=== PATIENT | male | born 1980 | race Caucasian/White ===

== ENCOUNTER 2021-04-17 14:13 | Observation (INO) | payer SELFPAY ==
[~2021-04-17] VITALS: Ht 177.8 cm; Wt 96.1 kg
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
[2021-04-17 14:42] LABS: MEAN CORPUSCULAR HEMOGLOBIN 32.1 pg (27.5-34.5); MEAN CORPUSCULAR HGB CONC 32.7 g/dL (33.2-36.2); MEAN PLATELET VOLUME 7.4 fL (7.4-10.4); PLATELET COUNT 293 x10^3/uL (130-400); RED BLOOD COUNT 5.13 x10^6/uL (4.38-5.82); RED CELL DISTRIBUTION WIDTH 15.2 % (9.4-14.8)
[2021-04-17 14:51] LABS: ALBUMIN 3.8 g/dL (3.4-5.0); ANION GAP 10 mmol/L (5-15); CALCIUM 8.8 mg/dL (8.5-10.1); CHLORIDE 103 mmol/L (98-107); CREATININE 1.94 mg/dL (0.7-1.3)
--- NOTE | 2021-04-17 15:05 | NUR ---
PT resting in bed, warming blanket in place.
[2021-04-17 15:43] LABS: <PLATELET ESTIMATE> ADEQUATE; <PLT MORPHOLOGY> NORMAL PLT MORPH; <RBC MORPHOLOGY> NORMAL; BAND#(MANUAL) 1.29 x10^3/uL; BANDS%(MANUAL) 7 % (0-7); EOS#(MANUAL) 0.18 x10^3/uL (0.0-0.4); EOS% (MANUAL) 1 % (1-7); LYMPH#(MANUAL) 0.55 x10^3/uL (1-3.4); LYMPHS% (MANUAL) 3 % (22-44); MONOS#(MANUAL) 1.47 x10^3/uL (0.3-2.7); MONOS% (MANUAL) 8 % (2-9); SEGS% (MANUAL) 81 % (42-75)
[2021-04-17] MEDS ORDERED: CEFTRIAXONE 1,000 MG in DEXTROSE 5% 50 ML IVPB ONE (16:00)
[2021-04-17] MEDS ORDERED: AZITHROMYCIN 500 MG in SODIUM CHLORIDE 0.9% 250 ML IV ONE (16:00)
--- NOTE | 2021-04-17 16:16 | NUR ---
I AM ASSUMING CARE OF THIS PT FROM HILARIO (PALLAVI) AT THIS TIME. SBAR WAS EXCHANGED AT THE BEDSIDE.
--- NOTE | 2021-04-17 16:16 | NUR ---
BILATERAL EAR IRRIGATION FOR WAX OCCLUSIONS AND DIFFICULTY HEARING SECONDARY TO SUCH.
[2021-04-17] MEDS ORDERED: SODIUM CHLORIDE 0.9% 1,000ML IVBOLUS ONE (16:30)
--- NOTE | 2021-04-17 16:55 | NUR ---
HOSPITALIST IS AT THE BEDSIDE FOR CONSULT/ASSESSMENT
[2021-04-17 16:57] LABS: ALANINE AMINOTRANSFERASE 330 U/L (12-78); ALBUMIN 3.7 g/dL (3.4-5.0); C-REACTIVE PROTEIN, QUANT 0.86 mg/dL (0.02-0.49)
[2021-04-17] MEDS ORDERED: ONDANSETRON 2MG/ML, 2ML IVPush PRN (17:00)
[2021-04-17] MEDS ORDERED: LORazepam 0.5MG TABLET PO PRN (17:00)
[2021-04-17] MEDS ORDERED: LORazepam 1MG TABLET PO PRN ×2 (17:00)
[2021-04-17] MEDS ORDERED: hydrALAzine 20 MG/ML, 1ML IVPush PRN (17:00)
[2021-04-17] MEDS ORDERED: DOCUSATE 100 MG CAPSULE PO PRN (17:00)
[2021-04-17] MEDS ORDERED: ACETAMINOPHEN 325 MG TABLET PO PRN (17:00)
[2021-04-17] MEDS ORDERED: LORazepam 2 MG/ML, 1ML IV PRN ×3 (17:00)
[2021-04-17 17:06] LABS: ALKALINE PHOSPHATASE 103 U/L (45-117); BILIRUBIN,TOTAL 0.2 mg/dL (0.2-1.0); TOTAL PROTEIN 8.2 g/dL (6.4-8.2)
--- NOTE | 2021-04-17 17:06 | NUR ---
PT SLEEPING INTERMITTENTLY. FREQUENT PERIODS OF APNEA ACCOMPANIED BY SUPPLEMENTAL O2 VIA NC. VS ARE CURRENTLY STABLE, AND WDL ASIDE FROM SUPPLEMENTAL O2. PT IS NOT INTERESTED IN DISCUSSING THE EVENTS OF THIS AFTERNOON WITH PROVIDERS. WE ARE AWAITING A ROM ASSIGNMENT FOR ADMISSION. IN THE MEANYTIME, I WILL CONTINUE TO MONITOR AND TREAT ORDERED, WELL PRN WHILE AWAITING A ROOM ASSIGNMENT.
[2021-04-17 17:10] LABS: BILIRUBIN, DIRECT < 0.1 mg/dL (0.1-0.2); BILIRUBIN,INDIRECT 0.1 mg/dL (0.0-2.0)
[2021-04-17] MEDS ORDERED: HEPARIN 5,000 UNITS/ML, 1ML ONE (17:17)
[2021-04-17] MEDS: HEPARIN 5,000 UNITS/ML, 1ML SQ SCH (17:26)
[2021-04-17] MEDS ORDERED: NALOXONE 0.4 MG/ML, 1ML IVPush PRN (17:30)
[2021-04-17] MEDS ORDERED: THIAMINE 200 MG in SODIUM CHLORIDE 0.9% 50 ML IV ONE (17:30)
[2021-04-17] MEDS: AMPICILLIN/SULBACTAM 3 GM in SODIUM CHLORIDE 0.9% 100 ML IV SCH (17:56)
[2021-04-17 18:01] LABS: D-DIMER 2.26 ug/mlFEU (0.00-0.52); INTERNATIONAL NORMALIZED RATIO 1.02 (0.93-1.1); PROTHROMBIN TIME 10.9 Seconds (9.6-11.5)
--- NOTE | 2021-04-17 18:13 | NUR ---
PT ASKING PERMISSION TO LEAVE. HE IS STILL INTERMITTENTLY SLEEPING W LESS FREQUENT PERIODS OF APNEA. VS ARE STABLE, AND WDL ASIDE FROM SUPPLEMENTAL O2 FOR RESP DEPRESSION.
[2021-04-17] MEDS: LACTATED RINGERS 1,000 ML IV SCH (18:26)
--- NOTE | 2021-04-17 18:46 | NUR ---
PT MOVED TO ROOM 16 WHILE AWAITING A ROOM ASSIGNMENT FOR ADMISSION.
--- NOTE | 2021-04-17 18:54 | NUR ---
RECEIVED REPORT FROM PALLAVI MACKEY. PT RESTING ON [facility]. NADN. RAMIREZ.
--- NOTE | 2021-04-17 19:08 | NUR ---
PT AWAKE AND ALERT. PROVIDED W/ MEAL TRAY.
--- NOTE | 2021-04-17 19:36 | NUR ---
PT RESTING ON GURNEY. NADN. RAMIREZ.
--- NOTE | 2021-04-17 20:38 | NUR ---
PT RESTING ON GURNEY. NADN. RR REMAINS 8-12. TO BE MEDICATED PER NOV.
[2021-04-17] MEDS ORDERED: NALOXONE 0.4 MG/ML, 1ML ONE (20:40)
--- NOTE | 2021-04-17 20:47 | NUR ---
PT MEDICATED PER NOV. RR INCREASED TO 12-14. PT AWAKE AND CONVERSING BUT STATES "I'M JUST REALLY TIRED". PT TRANSFERRED TO FLOOR W/ JOE, AGENCY SERVICE REPRESENTATIVE.
[2021-04-17 21:00] VITALS: BP 105/76
[2021-04-17] MEDS: SODIUM CHLORIDE FLUSH 10ML SYR IVF SCH (21:44)
[2021-04-18] MEDS: AMPICILLIN/SULBACTAM 3 GM in SODIUM CHLORIDE 0.9% 100 ML IV SCH ×2 (01:23→10:20)
[2021-04-18] MEDS: HEPARIN 5,000 UNITS/ML, 1ML SQ SCH ×2 (01:24→09:32)
[2021-04-18 01:28] VITALS: BP 109/77
[2021-04-18 02:05] LABS: MICROSCOPIC INDICATED
[2021-04-18 02:08] LABS: AMPHETAMINE SCREEN, URINE Positive (Negative); BARBITURATE SCREEN, URINE Negative (Negative); BENZODIAZEPINE SCREEN, URINE Negative (Negative); CANNABINOID SCREEN, URINE Negative (Negative); COCAINE SCREEN, URINE Negative (Negative); METHADONE SCREEN, URINE Negative (Negative); OPIATE SCREEN, URINE Positive (Negative)
[2021-04-18] MEDS: LACTATED RINGERS 1,000 ML IV SCH (05:37)
[2021-04-18 06:44] VITALS: BP 120/82
[2021-04-18] MEDS: SODIUM CHLORIDE FLUSH 10ML SYR IVF SCH (09:00)
[2021-04-18 09:47] LABS: BASOPHILS % (AUTO) 1 % (0-1); EOSINOPHILS % (AUTO) 1 % (1-7); LYMPHOCYTES % (AUTO) 23 % (22-44); MEAN CORPUSCULAR HEMOGLOBIN 32.1 pg (27.5-34.5); MEAN CORPUSCULAR HGB CONC 33.5 g/dL (33.2-36.2); MEAN PLATELET VOLUME 7.7 fL (7.4-10.4); MONOCYTES % (AUTO) 7 % (2-9); NEUTROPHILS % (AUTO) 68 % (42-75); PLATELET COUNT 268 x10^3/uL (130-400); RED BLOOD COUNT 4.42 x10^6/uL (4.38-5.82); RED CELL DISTRIBUTION WIDTH 14.8 % (9.4-14.8)
[2021-04-18 09:52] LABS: ANION GAP 2 mmol/L (5-15); CALCIUM 8.5 mg/dL (8.5-10.1); CHLORIDE 105 mmol/L (98-107); CREATININE 0.93 mg/dL (0.7-1.3)
[2021-04-18] MEDS ORDERED: AMOX1TAB64 PO (10:38)
[2021-04-18 11:30] LABS: ALANINE AMINOTRANSFERASE 253 U/L (12-78); ALBUMIN 3.3 g/dL (3.4-5.0)
[2021-04-18 11:32] LABS: ALKALINE PHOSPHATASE 85 U/L (45-117); BILIRUBIN,TOTAL 0.2 mg/dL (0.2-1.0); TOTAL PROTEIN 7.1 g/dL (6.4-8.2)
[2021-04-18 11:40] LABS: BILIRUBIN, DIRECT < 0.1 mg/dL (0.1-0.2); BILIRUBIN,INDIRECT 0.1 mg/dL (0.0-2.0)
[2021-04-18] MEDS ORDERED: DIAZEPAM 5 MG TABLET PO SCH (21:00)
== END 2021-04-18 13:41 | disposition home or self-care (01) ==
LOC: ED 15:51 → EDIP 16:28 → 4EST 20:49
PROVIDERS: ADMIT Internal Medicine; ATTEND Hospitalist
DX: T40.1X1A Poisoning by heroin, accidental (unintentional), initial encounter (principal); J96.01 Acute respiratory failure with hypoxia; J69.0 Pneumonitis due to inhalation of food and vomit; D72.829 Elevated white blood cell count, unspecified; N17.9 Acute kidney failure, unspecified; F10.10 Alcohol abuse, uncomplicated; H91.90 Unspecified hearing loss, unspecified ear; R79.89 Other specified abnormal findings of blood chemistry; R94.31 Abnormal electrocardiogram [ECG] [EKG]; Z79.899 Other long term (current) drug therapy
CPT/HCPCS: 36415; 71045; 80048; 80076; 80307; 80320; 81001; 82040; 83605; 83615; 83735; 84100; 84145; 84443; 85025; 85379; 85610; 86140; 87086; 93005; 96361; 96365; 96366; 96367; 96368; 96372; 96375; 99291; G0378; J0295; J0456; J0696; J1644; J2310; J3411; J7030; J7050; J7120; G0480